=== PATIENT | male | born 1945 | race Caucasian/White ===

== ENCOUNTER 2018-04-24 06:56 | Day surgery (SDC) | payer OTHER ==
[2018-04-24] MEDS ORDERED: PHENYLEPHRINE HCL 10 % OPHTH. SOL 5ML OD (07:00)
[2018-04-24] MEDS ORDERED: PROPARACAINE 0.5% OPHTH SOL 15ML OD (07:01)
[2018-04-24] MEDS ORDERED: MIDAZOLAM INJ 2 MG/2 ML VIAL (J2250) As Ordered ×2 (07:16→09:08)
[2018-04-24] MEDS: TROPICAMIDE 1% OPHTH SOLN 2ML OD (08:08)
[2018-04-24] MEDS: CYCLOPENTOLATE 2% OPHTH SOLN 2ML BTL OD (08:08)
[2018-04-24] MEDS: OFLOXACIN 0.3 % (OCUFLOX) OPTH SOL 5ML OD (08:08)
[2018-04-24] MEDS: PHENYLEPHRINE 2.5% OPHTH SOL 2ML OD (08:08)
[2018-04-24] MEDS: LIDOCAINE 3.5 % 1ML OPHTH TOPICAL GEL OU (08:08)
[2018-04-24] MEDS: POVIDONE-IODINE 5% OPHTH PREP SOL 30ML As Ordered (08:51)
[2018-04-24] MEDS: LIDOCAINE 1% SDV 5 ML VIAL As Ordered (08:56)
[2018-04-24] MEDS: BALANCED SALT IRRIGATION SOLUTION 500ML BAG (FOR OR EYE MACHINE) As Ordered (08:58)
[2018-04-24] MEDS: CEFUROXIME 1MG/0.1ML INTRACAMERAL INJ As Ordered (09:04)
[2018-04-24] MEDS: HEALON DUET (HEALON 10MG/ML 0.55ML & HEALON ENDOCOAT 30MG/ML 0.85ML) As Ordered (09:04)
[2018-04-24] MEDS: ACETYLCHOLINE OPHTH SOLN 1% 2ML (MIOCHOL-E) As Ordered (09:05)
[2018-04-24] MEDS ORDERED: AcetaZOLAMIDE 500 MG ER CAP As Ordered (09:24)
[2018-04-24] MEDS: AcetaZOLAMIDE 500 MG ER CAP PO (09:25)
[2018-04-24] MEDS: KETOROLAC 0.5% OPHTH SOLN OD (09:30)
[2018-04-24] MEDS ORDERED: ONDANSETRON 4MG/2ML VIAL (J2405) IV (09:30)
== END 2018-04-24 09:46 | disposition home or self-care (01) ==
LOC: M SDC 06:56
DX: H25.11 Age-related nuclear cataract, right eye (principal); H57.03 Miosis; I10 Essential (primary) hypertension; E78.00 Pure hypercholesterolemia, unspecified; K21.9 Gastro-esophageal reflux disease without esophagitis; R06.83 Snoring; G47.33 Obstructive sleep apnea (adult) (pediatric); Z88.5 Allergy status to narcotic agent; Z79.899 Other long term (current) drug therapy
CPT/HCPCS: 66982